=== PATIENT | male | born 1935 | race Caucasian/White ===

== ENCOUNTER 2017-07-27 05:23 | Day surgery (SDC) | payer MEDICARE ==
[2017-07-27] VITALS (8 sets, daily range): BP systolic 116–126; BP diastolic 51–61; PULSE 63–80; TEMP 98–98.4
[~2017-07-27] VITALS: Ht 180.3 cm; Wt 112.8 kg
[~2017-07-27 05:23] MED LIST: ATIVAN 0.50.5 MG/TAB PO; CARDURA 8MG TAB8 MG PO; CARDURA4 MG PO; DOXAZOCIN PO; LOW DOSE ASPIRI81 MG PO; MULTIPLE VITAMI1 CAP PO; UNABLE
[2017-07-27] MEDS ORDERED: REVIA 50MG TABL50 MG PO (05:53)
[2017-07-27] MEDS ORDERED: FLOMAX 0.40.4 MG/CAP PO (05:53)
[2017-07-27] MEDS ORDERED: GLUCOPHAGE500 MG/TAB PO (05:54)
[2017-07-27] MEDS ORDERED: CENTRUM SILVER1 TAB PO (05:55)
[2017-07-27] MEDS ORDERED: ASPIRIN 81M81 MG/TA2 PO (05:56)
[2017-07-27] MEDS ORDERED: MELATONIN5 M1 SL (05:56)
[2017-07-27] MEDS ORDERED: ATIVAN 0.50.5 MG/TAB PO (05:57)
[2017-07-27] MEDS ORDERED: PYRIDIUM 100MG100 MG PO (09:14)
== END 2017-07-27 11:50 | disposition home or self-care (01) ==
LOC: SDCO 05:23
DX: N32.9 Bladder disorder, unspecified (principal); N30.20 Other chronic cystitis without hematuria; Z85.46 Personal history of malignant neoplasm of prostate; E11.9 Type 2 diabetes mellitus without complications; I10 Essential (primary) hypertension; N40.1 Benign prostatic hyperplasia with lower urinary tract symptoms; R35.1 Nocturia; Z79.84 Long term (current) use of oral hypoglycemic drugs; Z79.82 Long term (current) use of aspirin; Z87.891 Personal history of nicotine dependence; Z80.1 Family history of malignant neoplasm of trachea, bronchus and lung; Z82.3 Family history of stroke; F10.21 Alcohol dependence, in remission; L71.9 Rosacea, unspecified
CPT/HCPCS: C1769; J0690; J1100; J2405; J2704; J3010; J7030; Q9967

== ENCOUNTER 2017-08-08 08:53 | Inpatient (IN) | payer MEDICARE ==
[~2017-08-08] VITALS: Ht 177.8 cm; Wt 112.9 kg
[~2017-08-08 08:53] MED LIST changes: +ASPIRIN 81M81 MG/TA2 PO; +CENTRUM SILVER1 TAB PO; +FLOMAX 0.40.4 MG/CAP PO; +GLUCOPHAGE500 MG/TAB PO; +MELATONIN5 M1 SL; +PYRIDIUM 100MG100 MG PO; +REVIA 50MG TABL50 MG PO
[2017-08-08 09:27] LABS: RED BLOOD COUNT 4.57 M/mm3 (4.20-5.60)
[2017-08-08 09:28] LABS: BASO # 0.1 (0.0-0.2); BASO % 0.5 % (0.0-2.0); EOS # 0.1 (0.0-0.7); EOS % 0.5 % (0-4.0); GRAN % 82.3 % (42.2-75.2); HEMATOCRIT 42.5 % (42.0-52.0); HEMOGLOBIN 14.2 g/dl (13.5-18.0); LYMPH % 9.2 % (20.0-51.0); MEAN CELL VOLUME 93 fl (80.0-100.0); MEAN CORPUSCULAR HEMOGLOBIN 31 pg (27.0-31.0); MEAN CORPUSCULAR HGB CONC 33 g/dl (33.0-37.0); MEAN PLATELET VOLUME 11.3 fl (7.4-10.4); MONO # 0.8 (0.1-0.6); MONO % 7.2 % (1.7-9.3); PLATELET COUNT 210 K/mm3 (130-400)
[2017-08-08 09:38] LABS: ALANINE AMINOTRANSFERASE 91 U/L (21-72); ALBUMIN 4.5 gm/dL (3.5-5.0); ALKALINE PHOSPHATASE 55 U/L (50-136); ANION GAP 13 mmol/L (7-16); AST,SGOT 145 U/L (15-37); BILIRUBIN,TOTAL 2.5 mg/dL (0.0-1.0); BLOOD UREA NITROGEN 9 mg/dL (9-20); CARBON DIOXIDE 26 mmol/L (22-30); CHLORIDE 98 mmol/L (98-107); CREATININE, serum 0.84 mg/dL (0.66-1.25); GLUCOSE 210 mg/dL (74-106); POTASSIUM 4.2 mmol/L (3.4-5.0); SODIUM 138 mmol/L (137-145); TOTAL PROTEIN 7.6 gm/dL (6.4-8.2)
[2017-08-08 09:38] LABS: COLLECTION METHOD CLEAN CATCH
[2017-08-08 09:44] LABS: MUCOUS Present /lpf; PH 6 (5-8); SQUAMOUS EPITHELIAL None Seen /hpf; URINE APPEARANCE Clear; URINE BACTERIA None Seen /hpf; URINE BILIRUBIN Negative (NEGATIVE); URINE BLOOD 1+ (NEGATIVE); URINE COLOR Yellow; URINE GLUCOSE Negative (NEGATIVE); URINE KETONE Trace (NEGATIVE); URINE LEUKOCYTE ESTERASE 1+ (NEGATIVE); URINE NITRATE Negative (NEGATIVE); URINE PROTEIN(semi-quant) Negative (NEGATIVE); URINE UROBILINOGEN Negative (NEGATIVE)
[2017-08-08 09:45] LABS: C-REACTIVE PROTEIN < 0.5 mg/dL (0.0-0.9)
[2017-08-08 09:47] LABS: TROPONIN-I < 0.012 ng/mL (0.000-0.034)
[2017-08-08 10:15] LABS: LIPASE 19021 U/L (23-300)
[2017-08-08 12:28] VITALS: BP 150/59; PULSE 88; TEMP 98.1
[2017-08-08 17:34] VITALS: BP 123/56; PULSE 66; TEMP 98.5
[2017-08-08 22:14] VITALS: BP 103/72; PULSE 77; TEMP 98.7
[2017-08-09 04:57] VITALS: BP 114/50; PULSE 67; TEMP 99.3
[2017-08-09 06:43] LABS: HEMATOCRIT 38.3 % (42.0-52.0); HEMOGLOBIN 12.5 g/dl (13.5-18.0); MEAN CELL VOLUME 95 fl (80.0-100.0); MEAN CORPUSCULAR HEMOGLOBIN 31 pg (27.0-31.0); MEAN CORPUSCULAR HGB CONC 33 g/dl (33.0-37.0); PLATELET COUNT 178 K/mm3 (130-400); RED BLOOD COUNT 4.03 M/mm3 (4.20-5.60); REDCELL DISTRIBUTION WIDTH-CV 13.3 % (11.5-14.5)
[2017-08-09 07:07] LABS: ALBUMIN 3.3 gm/dL (3.5-5.0); BILIRUBIN,TOTAL 2.1 mg/dL (0.0-1.0); CALCIUM 8.7 mg/dL (8.4-10.2); CREATININE, serum 0.89 mg/dL (0.66-1.25); POTASSIUM 3.9 mmol/L (3.4-5.0); TOTAL PROTEIN 6.1 gm/dL (6.4-8.2)
[2017-08-09 09:37] VITALS: BP 132/47; PULSE 66; TEMP 98.8
[2017-08-09 13:19] VITALS: BP 131/53; PULSE 71; TEMP 99.1
[2017-08-09 16:57] VITALS: BP 133/52; PULSE 73; TEMP 99.5
[2017-08-09 22:25] VITALS: BP 139/57; PULSE 75; TEMP 98.7
[2017-08-10] VITALS (15 sets, daily range): BP systolic 132–168; BP diastolic 44–87; PULSE 71–99; TEMP 97.4–99.2
[2017-08-11 03:19] VITALS: BP 137/51; PULSE 82; TEMP 98.3
[2017-08-11 07:18] VITALS: BP 136/63; PULSE 66; TEMP 100
[2017-08-11 11:05] VITALS: BP 144/60; PULSE 74; TEMP 98.2
== END 2017-08-11 14:54 | disposition home or self-care (01) | DRG 419 ==
LOC: COL.ER 08:53 → SURG 11:54 → PEDS 11:54
PROVIDERS: Emergency Medicine; Surgery
PROC: BF131ZZ Fluoroscopy of Gallbladder and Bile Ducts using Low Osmolar Contrast (ICD-10-PCS; 2017-08-10)
PROC: 0FT44ZZ Resection of Gallbladder, Percutaneous Endoscopic Approach (ICD-10-PCS; principal; 2017-08-10 14:00)
DX: K85.10 Biliary acute pancreatitis without necrosis or infection (principal); E11.9 Type 2 diabetes mellitus without complications; C61 Malignant neoplasm of prostate; F10.21 Alcohol dependence, in remission; Z87.891 Personal history of nicotine dependence
CPT/HCPCS: J0696; J1650; J2270; J2405; J2550; J2704; J3010; J7030; J7120; Q9967

== ENCOUNTER → 2018-09-20 | Outpatient (CLI) | payer MEDICARE | LOC: COL.RAD 15:32 | DX: N28.1 Cyst of kidney, acquired (principal) ==

== ENCOUNTER 2019-04-18 20:44 | Emergency (ER) | payer MEDICARE ==
[~2019-04-18] VITALS: Ht 177.8 cm; Wt 122.7 kg
[2019-04-18 20:45] VITALS: TEMP 98.5
[2019-04-18 21:09] LABS: ALBUMIN 3.9 gm/dL (3.5-5.0); BILIRUBIN,TOTAL 0.4 mg/dL (0.0-1.0); CALCIUM 8.5 mg/dL (8.4-10.2); CREATININE, serum 0.83 (0.66-1.25); TOTAL PROTEIN 6.8 gm/dL (6.4-8.2)
[2019-04-18 21:13] LABS: BASO # 0.1 (0.0-0.2); BASO % 1.1 % (0.0-2.0); EOS # 0.2 (0.0-0.7); EOS % 2.4 % (0-4.0); GRAN # 3.6 (1.4-6.5); GRAN % 57.5 % (42.2-75.2); HEMATOCRIT 42.5 % (42.0-52.0); LYMPH % 32.2 % (20.0-51.0); MEAN CELL VOLUME 94 fl (80.0-100.0); MEAN CORPUSCULAR HEMOGLOBIN 31 pg (27.0-31.0); MEAN CORPUSCULAR HGB CONC 33 g/dl (33.0-37.0); MEAN PLATELET VOLUME 10.7 fl (7.4-10.4); MONO # 0.4 (0.1-0.6); MONO % 6.6 % (1.7-9.3); PLATELET COUNT 202 K/mm3 (130-400); RED BLOOD COUNT 4.54 M/mm3 (4.20-5.60); REDCELL DISTRIBUTION WIDTH-CV 12.2 % (11.5-14.5)
[2019-04-18 23:34] VITALS: BP 135/71; PULSE 80
== END 2019-04-18 23:24 | disposition home or self-care (01) ==
LOC: COL.ER 20:44
PROVIDERS: Family Medicine
DX: S01.81XA Laceration without foreign body of other part of head, initial encounter (principal); S06.339A Contusion and laceration of cerebrum, unspecified, with loss of consciousness of unspecified duration, initial encounter; E11.9 Type 2 diabetes mellitus without complications; F10.129 Alcohol abuse with intoxication, unspecified; Z87.430 Personal history of prostatic dysplasia; Z79.82 Long term (current) use of aspirin; Z79.84 Long term (current) use of oral hypoglycemic drugs; W00.0XXA Fall on same level due to ice and snow, initial encounter; Y90.6 Blood alcohol level of 120-199 mg/100 ml

== ENCOUNTER 2019-06-17 11:19 | Emergency (ER) | payer MEDICARE ==
[~2019-06-17] VITALS: Ht 177.8 cm; Wt 102.3 kg
[2019-06-17 11:52] LABS: BASO # 0.1 (0.0-0.2); BASO % 0.7 % (0.0-2.0); EOS % 0.4 % (0-4.0); GRAN # 5.5 (1.4-6.5); GRAN % 75.2 % (42.2-75.2); HEMATOCRIT 44.8 % (42.0-52.0); LYMPH # 1.2 (1.2-3.4); LYMPH % 16.8 % (20.0-51.0); MEAN CELL VOLUME 93 fl (80.0-100.0); MEAN CORPUSCULAR HEMOGLOBIN 31 pg (27.0-31.0); MEAN CORPUSCULAR HGB CONC 34 g/dl (33.0-37.0); MEAN PLATELET VOLUME 10.4 fl (7.4-10.4); MONO # 0.5 (0.1-0.6); MONO % 6.6 % (1.7-9.3); PLATELET COUNT 241 K/mm3 (130-400); RED BLOOD COUNT 4.84 M/mm3 (4.20-5.60); REDCELL DISTRIBUTION WIDTH-CV 12.7 % (11.5-14.5)
[2019-06-17 12:03] LABS: ALANINE AMINOTRANSFERASE 23 U/L (21-72); ALBUMIN 4.4 gm/dL (3.5-5.0); ALKALINE PHOSPHATASE 61 U/L (50-136); ANION GAP 11 mmol/L (7-16); AST,SGOT 19 U/L (15-37); BILIRUBIN,TOTAL 0.9 mg/dL (0.0-1.0); BLOOD UREA NITROGEN 9 mg/dL (9-20); CALCIUM 9.3 mg/dL (8.4-10.2); CARBON DIOXIDE 25 mmol/L (22-30); CHLORIDE 98 mmol/L (98-107); CREATININE, serum 0.87 (0.66-1.25); GLUCOSE 197 mg/dL (74-106); POTASSIUM 3.9 mmol/L (3.4-5.0); SODIUM 134 mmol/L (137-145); TOTAL PROTEIN 7.4 gm/dL (6.4-8.2)
[2019-06-17 12:06] LABS: ALCOHOL(ethanol),MEDICAL < 10 mg/dL
[2019-06-17] MEDS ORDERED: FOLIC ACID0.4 MG PO (14:39)
[2019-06-17] MEDS ORDERED: NATURE'S BLEND100 M2 PO (14:39)
[2019-06-17 15:08] VITALS: BP 147/67; PULSE 77; TEMP 98.3
== END 2019-06-17 15:08 | disposition home or self-care (01) ==
LOC: COL.ER 11:19
PROVIDERS: Emergency Medicine
DX: R20.2 Paresthesia of skin (principal); E11.9 Type 2 diabetes mellitus without complications; I10 Essential (primary) hypertension; F41.9 Anxiety disorder, unspecified; Z90.89 Acquired absence of other organs; Z79.84 Long term (current) use of oral hypoglycemic drugs; Z79.82 Long term (current) use of aspirin

== ENCOUNTER 2019-06-24 19:13 | Emergency (ER) | payer MEDICARE ==
[~2019-06-24] VITALS: Ht 177.8 cm; Wt 102.3 kg
[~2019-06-24 19:13] MED LIST changes: +FOLIC ACID0.4 MG PO; +NATURE'S BLEND100 M2 PO
[2019-06-24 20:00] LABS: BASO % 0.6 % (0.0-2.0); GRAN % 75.7 % (42.2-75.2); HEMATOCRIT 44.2 % (42.0-52.0); HEMOGLOBIN 15.1 g/dl (13.5-18.0); LYMPH # 0.8 (1.2-3.4); LYMPH % 15.4 % (20.0-51.0); MEAN CELL VOLUME 90 fl (80.0-100.0); MEAN CORPUSCULAR HEMOGLOBIN 31 pg (27.0-31.0); MEAN CORPUSCULAR HGB CONC 34 g/dl (33.0-37.0); MEAN PLATELET VOLUME 10.7 fl (7.4-10.4); MONO # 0.4 (0.1-0.6); MONO % 8.1 % (1.7-9.3); PLATELET COUNT 200 K/mm3 (130-400); RED BLOOD COUNT 4.89 M/mm3 (4.20-5.60); REDCELL DISTRIBUTION WIDTH-CV 12.5 % (11.5-14.5)
[2019-06-24 20:15] LABS: ALANINE AMINOTRANSFERASE 32 U/L (21-72); ALBUMIN 4.1 gm/dL (3.5-5.0); ALKALINE PHOSPHATASE 55 U/L (50-136); ANION GAP 12 mmol/L (7-16); AST,SGOT 36 U/L (15-37); BILIRUBIN,TOTAL 0.7 mg/dL (0.0-1.0); BLOOD UREA NITROGEN 9 mg/dL (9-20); C-REACTIVE PROTEIN 0.9 mg/dL (0.0-0.9); CALCIUM 8.6 mg/dL (8.4-10.2); CARBON DIOXIDE 26 mmol/L (22-30); CHLORIDE 94 mmol/L (98-107); CREATININE, serum 0.79 (0.66-1.25); GLUCOSE 178 mg/dL (74-106); MAGNESIUM 1.8 mg/dL (1.6-2.3); PHOSPHOROUS 3.2 mg/dL (2.5-4.5); POTASSIUM 3.4 mmol/L (3.4-5.0); SODIUM 131 mmol/L (137-145)
[2019-06-24 20:16] LABS: ALCOHOL(ethanol),MEDICAL < 10 mg/dL
[2019-06-24 20:41] LABS: COLLECTION METHOD CLEAN CATCH
[2019-06-24 20:49] LABS: PH 7 (5-8); SQUAMOUS EPITHELIAL None Seen /hpf; URINE APPEARANCE Clear; URINE BACTERIA None Seen /hpf; URINE BILIRUBIN Negative (NEGATIVE); URINE BLOOD 2+ (NEGATIVE); URINE COLOR Yellow; URINE GLUCOSE Negative (NEGATIVE); URINE KETONE 1+ (NEGATIVE); URINE LEUKOCYTE ESTERASE Negative (NEGATIVE); URINE NITRATE Negative (NEGATIVE); URINE PROTEIN(semi-quant) Negative (NEGATIVE); URINE RBC >50 /hpf; URINE UROBILINOGEN Negative (NEGATIVE)
[2019-06-24 22:00] VITALS: BP 147/67; PULSE 70; TEMP 98.8
[2019-06-24] MEDS ORDERED: TAMIFLU 75MG75 MG PO (22:04)
== END 2019-06-24 22:15 | disposition home or self-care (01) ==
LOC: COL.ER 19:13
PROVIDERS: Emergency Medicine
DX: J09.X1 Influenza due to identified novel influenza A virus with pneumonia (principal); F03.90 Unspecified dementia, unspecified severity, without behavioral disturbance, psychotic disturbance, mood disturbance, and anxiety; E11.9 Type 2 diabetes mellitus without complications; Z90.89 Acquired absence of other organs; Z79.84 Long term (current) use of oral hypoglycemic drugs; Z79.82 Long term (current) use of aspirin
CPT/HCPCS: J7030

== ENCOUNTER 2019-06-26 12:28 | Inpatient (IN) | payer MEDICARE ==
[~2019-06-26] VITALS: Ht 172.7 cm; Wt 105.9 kg
[~2019-06-26 12:28] MED LIST changes: +TAMIFLU 75MG75 MG PO
[2019-06-26 13:27] LABS: COLLECTION METHOD CLEAN CATCH
[2019-06-26] MEDS ORDERED: CELEXA 20MG20 MG/TAB PO (13:54)
[2019-06-26 13:55] LABS: MUCOUS Present /lpf; PH 6 (5-8); SQUAMOUS EPITHELIAL None Seen /hpf; URINE APPEARANCE Cloudy; URINE BACTERIA None Seen /hpf; URINE BILIRUBIN Negative (NEGATIVE); URINE BLOOD 3+ (NEGATIVE); URINE COLOR Amber; URINE GLUCOSE Negative (NEGATIVE); URINE KETONE 1+ (NEGATIVE); URINE LEUKOCYTE ESTERASE 2+ (NEGATIVE); URINE NITRATE Negative (NEGATIVE); URINE PROTEIN(semi-quant) 2+ (NEGATIVE); URINE RBC >50 /hpf; URINE UROBILINOGEN Negative (NEGATIVE)
[2019-06-26] MEDS ORDERED: NAMENDA 10MG TA10 MG PO (13:55)
[2019-06-26] MEDS ORDERED: ARICEPT 5MG PO (13:57)
[2019-06-26 14:56] LABS: BASO % 0.2 % (0.0-2.0); GRAN # 12.7 (1.4-6.5); GRAN % 86.3 % (42.2-75.2); HEMATOCRIT 43.2 % (42.0-52.0); HEMOGLOBIN 14.7 g/dl (13.5-18.0); LYMPH # 0.7 (1.2-3.4); LYMPH % 4.6 % (20.0-51.0); MEAN CELL VOLUME 91 fl (80.0-100.0); MEAN CORPUSCULAR HEMOGLOBIN 31 pg (27.0-31.0); MEAN CORPUSCULAR HGB CONC 34 g/dl (33.0-37.0); MEAN PLATELET VOLUME 10.6 fl (7.4-10.4); MONO # 1.3 (0.1-0.6); MONO % 8.6 % (1.7-9.3); PLATELET COUNT 170 K/mm3 (130-400); RED BLOOD COUNT 4.75 M/mm3 (4.20-5.60); REDCELL DISTRIBUTION WIDTH-CV 12.7 % (11.5-14.5)
[2019-06-26 15:25] LABS: ALBUMIN 3.8 gm/dL (3.5-5.0); BILIRUBIN,TOTAL 0.9 mg/dL (0.0-1.0); CALCIUM 8.4 mg/dL (8.4-10.2); CREATININE, serum 0.89 (0.66-1.25); POTASSIUM 3.8 mmol/L (3.4-5.0); TOTAL PROTEIN 6.7 gm/dL (6.4-8.2)
[2019-06-26 18:38] VITALS: BP 130/54; PULSE 75; TEMP 100.5
[2019-06-26 20:51] VITALS: BP 141/58; PULSE 77; TEMP 99.6
[2019-06-27] VITALS: TEMP 99.8
[2019-06-27 04:32] VITALS: BP 125/31; PULSE 75; TEMP 102
[2019-06-27 09:24] VITALS: BP 119/38; PULSE 58; TEMP 98.6
[2019-06-27 10:14] LABS: HEMATOCRIT 40.6 % (42.0-52.0); HEMOGLOBIN 13.4 g/dl (13.5-18.0); MEAN CELL VOLUME 94 fl (80.0-100.0); MEAN CORPUSCULAR HEMOGLOBIN 31 pg (27.0-31.0); MEAN CORPUSCULAR HGB CONC 33 g/dl (33.0-37.0); PLATELET COUNT 164 K/mm3 (130-400); RED BLOOD COUNT 4.34 M/mm3 (4.20-5.60); REDCELL DISTRIBUTION WIDTH-CV 13.1 % (11.5-14.5)
[2019-06-27 10:35] LABS: BAND 14 % (0-10); LYMPHOCYTE 2 % (20.0-51.0); NEUTROPHILS 75 % (42.0-75.2); PLATELET ESTIMATE NORMAL (NORMAL)
[2019-06-27 10:37] LABS: CREATININE, serum 0.78 (0.66-1.25); POTASSIUM 3.5 mmol/L (3.4-5.0)
[2019-06-27 13:28] VITALS: BP 116/38; PULSE 63; TEMP 98.4
[2019-06-27 17:47] VITALS: BP 107/46; PULSE 84; TEMP 98.4
[2019-06-27 21:04] VITALS: BP 151/63; PULSE 75; TEMP 97.8
[2019-06-28 04:07] VITALS: BP 140/51; PULSE 76; TEMP 101
[2019-06-28 07:40] LABS: BASO % 0.2 % (0.0-2.0); GRAN # 12.2 (1.4-6.5); GRAN % 82.1 % (42.2-75.2); HEMATOCRIT 38.5 % (42.0-52.0); HEMOGLOBIN 12.7 g/dl (13.5-18.0); LYMPH # 1.5 (1.2-3.4); MEAN CELL VOLUME 93 fl (80.0-100.0); MEAN CORPUSCULAR HEMOGLOBIN 31 pg (27.0-31.0); MEAN CORPUSCULAR HGB CONC 33 g/dl (33.0-37.0); MEAN PLATELET VOLUME 11.5 fl (7.4-10.4); MONO # 1.1 (0.1-0.6); MONO % 7.3 % (1.7-9.3); PLATELET COUNT 153 K/mm3 (130-400); RED BLOOD COUNT 4.12 M/mm3 (4.20-5.60)
[2019-06-28 07:47] LABS: CALCIUM 7.8 mg/dL (8.4-10.2); CREATININE, serum 0.71 (0.66-1.25); POTASSIUM 3.3 mmol/L (3.4-5.0)
[2019-06-28 08:24] VITALS: BP 144/59; PULSE 70; TEMP 98.9
[2019-06-28 12:51] VITALS: BP 153/67; PULSE 65; TEMP 99
[2019-06-28 16:26] VITALS: BP 144/61; PULSE 69; TEMP 98.8
[2019-06-28 21:33] VITALS: BP 142/56; PULSE 68; TEMP 97.6
[2019-06-29 00:17] VITALS: BP 166/66; PULSE 68; TEMP 99
[2019-06-29 04:23] VITALS: BP 148/62; PULSE 82; TEMP 98.5
[2019-06-29 07:56] VITALS: BP 131/51; PULSE 72; TEMP 99.1
[2019-06-29 08:04] LABS: BASO % 0.1 % (0.0-2.0); EOS % 0.2 % (0-4.0); GRAN # 7.6 (1.4-6.5); GRAN % 78.4 % (42.2-75.2); HEMATOCRIT 39.4 % (42.0-52.0); HEMOGLOBIN 13.2 g/dl (13.5-18.0); LYMPH # 1.3 (1.2-3.4); LYMPH % 13.4 % (20.0-51.0); MEAN CELL VOLUME 93 fl (80.0-100.0); MEAN CORPUSCULAR HEMOGLOBIN 31 pg (27.0-31.0); MEAN CORPUSCULAR HGB CONC 34 g/dl (33.0-37.0); MEAN PLATELET VOLUME 11.2 fl (7.4-10.4); MONO # 0.7 (0.1-0.6); MONO % 7.5 % (1.7-9.3); PLATELET COUNT 196 K/mm3 (130-400); RED BLOOD COUNT 4.25 M/mm3 (4.20-5.60); REDCELL DISTRIBUTION WIDTH-CV 12.9 % (11.5-14.5)
[2019-06-29 08:12] LABS: CALCIUM 8.1 mg/dL (8.4-10.2); CREATININE, serum 0.66 (0.66-1.25); MAGNESIUM 1.9 mg/dL (1.6-2.3); POTASSIUM 3.6 mmol/L (3.4-5.0)
[2019-06-29] MEDS ORDERED: CIPRO 500MG TA500 MG PO (10:12)
== END 2019-06-29 13:17 | disposition home or self-care (01) | DRG 872 ==
LOC: COL.ER 12:28 → MEDICAL 17:02
PROVIDERS: Emergency Medicine; Physician Assistant; ADMIT Student in an Organized Health Care Education/Training Program
DX: A41.9 Sepsis, unspecified organism (principal); N39.0 Urinary tract infection, site not specified; F41.9 Anxiety disorder, unspecified; F10.10 Alcohol abuse, uncomplicated; I10 Essential (primary) hypertension; E11.9 Type 2 diabetes mellitus without complications; F03.90 Unspecified dementia, unspecified severity, without behavioral disturbance, psychotic disturbance, mood disturbance, and anxiety; F32.9 Major depressive disorder, single episode, unspecified; J10.1 Influenza due to other identified influenza virus with other respiratory manifestations; B96.5 Pseudomonas (aeruginosa) (mallei) (pseudomallei) as the cause of diseases classified elsewhere; N32.0 Bladder-neck obstruction; Z85.46 Personal history of malignant neoplasm of prostate; Z90.49 Acquired absence of other specified parts of digestive tract; Z79.82 Long term (current) use of aspirin; Z79.84 Long term (current) use of oral hypoglycemic drugs; Z87.891 Personal history of nicotine dependence
CPT/HCPCS: 99222-AI; 99232-AI; 99233-AI; A4216; J0692; J0696; J7030; Q9967

== ENCOUNTER 2019-10-07 08:37 | Emergency (ER) | payer MEDICARE ==
[~2019-10-07] VITALS: Ht 177.8 cm; Wt 110.0 kg
[~2019-10-07 08:37] MED LIST changes: +ARICEPT 5MG PO; +CELEXA 20MG20 MG/TAB PO; +CIPRO 500MG TA500 MG PO; +NAMENDA 10MG TA10 MG PO
[2019-10-07 08:50] VITALS: TEMP 99.9
[2019-10-07] MEDS ORDERED: KLONOPIN 1MG1 MG PO (09:06)
[2019-10-07] MEDS ORDERED: SEROQUEL 2525 MG/TAB PO (09:06)
[2019-10-07] MEDS ORDERED: GLUCOPHAGE XR500 M1 PO (09:07)
[2019-10-07 09:30] LABS: COLLECTION METHOD CLEAN CATCH
[2019-10-07 09:45] LABS: PH 7 (5-8); SQUAMOUS EPITHELIAL None Seen /hpf; URINE APPEARANCE Turbid; URINE BACTERIA None Seen /hpf; URINE BILIRUBIN Negative (NEGATIVE); URINE BLOOD 1+ (NEGATIVE); URINE COLOR Yellow; URINE GLUCOSE Negative (NEGATIVE); URINE KETONE Negative (NEGATIVE); URINE LEUKOCYTE ESTERASE 2+ (NEGATIVE); URINE NITRATE Positive (NEGATIVE); URINE PROTEIN(semi-quant) 2+ (NEGATIVE); URINE UROBILINOGEN Negative (NEGATIVE)
[2019-10-07] MEDS ORDERED: AMOXICILLIN 8751 TAB PO (09:56)
[2019-10-07 10:28] VITALS: BP 153/76; PULSE 98
[2019-10-08] MEDS ORDERED: CIPRO 500MG TA500 MG PO ×3 (12:52→13:46)
== END 2019-10-07 10:28 | disposition home or self-care (01) ==
LOC: COL.ER 08:37
PROVIDERS: Family Medicine
DX: N30.00 Acute cystitis without hematuria (principal)

== ENCOUNTER → 2020-11-14 | Outpatient (CLI) | payer MEDICARE ==
[~2020-11-14] MED LIST changes: +AMOXICILLIN 8751 TAB PO; +GLUCOPHAGE XR500 M1 PO; +KLONOPIN 1MG1 MG PO; +ONE-A-DAY ESSE1 EACH PO; +SEROQUEL 2525 MG/TAB PO
== END ==
LOC: COL.RAD 08:29
DX: N39.0 Urinary tract infection, site not specified (principal)

== ENCOUNTER 2021-06-10 08:40 | Inpatient (IN) | payer MEDICARE ==
[~2021-06-10] VITALS: Ht 182.9 cm; Wt 137.0 kg
[2021-06-10 09:04] LABS: BASO # 0.1 K/mm3 (0.0-0.2); BASO % 0.5 % (0.0-2.0); EOS % 0.1 % (0.0-4.0); GRAN # 9.9 K/mm3 (1.4-6.5); GRAN % 85.3 % (42.2-75.2); HEMOGLOBIN 14.1 g/dl (13.5-18.0); LYMPH # 0.8 K/mm3 (1.2-3.4); MEAN CELL VOLUME 93 fl (80.0-100.0); MEAN CORPUSCULAR HEMOGLOBIN 31 pg (27-31); MEAN CORPUSCULAR HGB CONC 33 g/dl (33.0-37.0); MEAN PLATELET VOLUME 10.7 fl (7.4-10.4); MONO # 0.8 K/mm3 (0.1-0.6); MONO % 6.8 % (1.7-9.3); PLATELET COUNT 234 K/mm3 (130-400); RED BLOOD COUNT 4.63 M/mm3 (4.20-5.60); REDCELL DISTRIBUTION WIDTH-CV 12.6 % (11.5-14.5)
[2021-06-10 09:12] LABS: COLLECTION METHOD IN
[2021-06-10 09:13] LABS: INR 1.1 (0.8-3.0); PROTHROMBIN TIME 11.9 SECONDS (9.7-12.8)
[2021-06-10 09:17] LABS: ARTERIAL BLD GAS O2 SATURATION 94.8 % (92-100); ARTERIAL BLD GAS TCO2 CT 27.6; ARTERIAL BLOOD GAS BASE EXCESS 0.7 (-2-2); ARTERIAL BLOOD GAS HCO3 26.2 meq/L (22-26); ARTERIAL BLOOD GAS PCO2 45.3 mmHg (35-45); ARTERIAL BLOOD GAS PO2 68.1 mmHg (80-100); ARTERIAL BLOOD GAS pH 7.38 (7.35-7.45)
[2021-06-10 09:19] LABS: PH 6 (5-8); SQUAMOUS EPITHELIAL None Seen /hpf (0-10); URINE APPEARANCE Clear (CLEAR/HAZY); URINE BACTERIA None Seen /hpf (NONE SEEN); URINE BILIRUBIN Negative (NEGATIVE); URINE BLOOD Negative (NEGATIVE); URINE COLOR Yellow (YELLOW); URINE GLUCOSE 2+ (NEGATIVE); URINE KETONE 1+ (NEGATIVE); URINE LEUKOCYTE ESTERASE Negative (NEGATIVE); URINE NITRATE Negative (NEGATIVE); URINE PROTEIN(semi-quant) Negative (NEGATIVE); URINE UROBILINOGEN Negative (NEGATIVE)
[2021-06-10 09:24] LABS: ALBUMIN 3.9 gm/dL (3.4-4.8); BILIRUBIN,TOTAL 0.7 mg/dL (0.2-1.2); C-REACTIVE PROTEIN 0.29 mg/dL (0.00-0.50); CREATININE, serum 1.05 mg/dL (0.72-1.25); POTASSIUM 4.5 mmol/L (3.5-4.5); TOTAL PROTEIN 7.1 gm/dL (6.2-8.1)
--- NOTE | 2021-06-10 10:41 | NUR ---
Initial visit; Roller Varnisher answered call from nurse for family of Omar. Per request Roller Varnisher called a Tariff Expert of their choice. Tariff Expert will receive the message and come directly to [place] immediately.
--- NOTE | 2021-06-10 16:32 | NUR ---
PT ADMITTED TO ROOM [address] DAVIS. PT HAS HAD A HEMORRAGIC STROKE. LEFT SIDE IS AFFECTED. CURRENT BP 159/69. CARDIZEM DRIP RUNNING @5 MLS/HR. PT HAD EMESIS X1 GREEN MUCOUS. BED BATH PROVIDED AND COMPLETE BED CHANGE.
[2021-06-10 16:51] VITALS: BP 151/67; PULSE 82; TEMP 98.1
--- NOTE | 2021-06-10 17:58 | NUR ---
INCREASED CARDIZEM RATE TO 7.5 MLS/HR TASHI DAVIS.
--- NOTE | 2021-06-10 18:14 | NUR ---
PT'S AT BEDSIDE.
--- NOTE | 2021-06-10 20:00 | NUR ---
Pt. laying in bed. Pt. is alert and oriented but forgettful. Bilateral AC IV's. IV fluids infusing per orders. Cardizem GTT infusing to orders. Pt. does not appear to be in pain per FLACC scale. Call light within reach.
[2021-06-10 22:00] VITALS: BP 185/92; PULSE 97
--- NOTE | 2021-06-10 22:00 | NUR ---
BP's remaining high, 185/92. TAB Abraham changed cardizem GTT, see mar. Will monitor.
[2021-06-10 22:15] VITALS: BP 140/40; PULSE 100
[2021-06-11] VITALS (8 sets, daily range): BP systolic 110–139; BP diastolic 43–57; PULSE 77–93; TEMP 97.8–98.7
[2021-06-11 06:50] LABS: BASO % 0.1 % (0.0-2.0); GRAN # 9.3 K/mm3 (1.4-6.5); GRAN % 83.9 % (42.2-75.2); HEMATOCRIT 40.6 % (42.0-52.0); HEMOGLOBIN 13.1 g/dl (13.5-18.0); LYMPH # 1.1 K/mm3 (1.2-3.4); LYMPH % 9.5 % (20.0-51.0); MEAN CELL VOLUME 94 fl (80.0-100.0); MEAN CORPUSCULAR HEMOGLOBIN 31 pg (27-31); MEAN CORPUSCULAR HGB CONC 32 g/dl (33.0-37.0); MEAN PLATELET VOLUME 11.3 fl (7.4-10.4); MONO # 0.7 K/mm3 (0.1-0.6); PLATELET COUNT 231 K/mm3 (130-400)
[2021-06-11 07:16] LABS: CALCIUM 8.8 mg/dL (8.4-10.2); CREATININE, serum 0.87 mg/dL (0.72-1.25); POTASSIUM 4.2 mmol/L (3.5-4.5)
--- NOTE | 2021-06-11 07:24 | NUR ---
TELE DISCONTINUED PER ORDERS.
--- NOTE | 2021-06-11 09:31 | NUR ---
PT RESTING IN BED. AM MEDS GIVEN ORDERED. OT IN TO SEE PT THIS AM.
--- NOTE | 2021-06-11 15:34 | NUR ---
Neurodiagnostic Tech collaborated with Hospitalist and palliative consult ordered. OMERO met with Alma, Palliative Care RN who advised she met with patient and his , Kristina this afternoon and they wanted to discuss goals of care with their son, David. SW contacted patient's son, David who advised patient and Kristina live in [place]. Patient's primary care physician is Dr. Franco and prior to hospitalization, patient was independent with ADLS and did not use any DME. Patient has DPOA-HC in EMR which designates Kristina and David. David stated he and Kristina are available for a phone call tomorrow morning to discuss goals of care. David states he would be ready for a call tomorrow at 0900. OMERO contacted CEE Marquez who advised she would call tomorrow at 0900. Discharge Plan: Unknown at this time, Palliative Care to have goals of care discussion with family tomorrow morning.
[2021-06-12] VITALS (12 sets, daily range): BP systolic 112–151; BP diastolic 51–69; PULSE 63–77; TEMP 97.6–98.2
--- NOTE | 2021-06-12 02:29 | NUR ---
PATIENT HAS BEEN TALKATIVE THIS EVENING, BUT SPEECH IS CONFUSED. SEE ASSESSMENT. COBURN TO DD WITH CLEAR YELLOW URINE. IV FLUIDS AND CARDIAZEM DRIP INFUSING WITHOUT ISSUE. PATIENT WAS GURGLING DURING SPEECH AND YANKUR SUCTION USED.
--- NOTE | 2021-06-12 09:22 | NUR ---
Call made to patient's son David #[phone]. Was on speaker phone with David, his , and patient's Kristina. Patient has been working with and plans to have barium swallow study or similar to evaluate further for altered diet recommendations. I relayed this to the family. They are accepting that the patient will most likely need LTC and would like to see if he tolerates rehab. They confirmed that the patient would not want a feeding tube and understood that his PO intake is still being evaluated and his overall prognosis will be based on how well he can protect his airway. Family is hopeful but realistic. Family prefers residential at [facility] if available, then [facility]. They asked if [facility] has any residential options but would also be open to [place], if no other options in [facility] are availble. I relayed this information to and provided my contact information to patient's family if more questions arise.
--- NOTE | 2021-06-12 16:46 | NUR ---
SW spoke with the patient's son David who states that knowing he passed his MBS, they would like to pursue SNF options. Their 1st choice would be [facility], [facility]nd [facility], [facility]. Referrals sent to all of the above facilities.
[2021-06-13] VITALS (11 sets, daily range): BP systolic 129–158; BP diastolic 52–74; PULSE 54–71; TEMP 97.9–98.6
--- NOTE | 2021-06-13 02:51 | NUR ---
Scheduled medications given. Shift assessment performed. Catheter in place, securment device in use, tez care performed. Patient is alert, but confused. Small skin tear located on patient's right upper arm. Appears to be caused by BP cuff. BP cuff taken off and placed on opposite arm. No s/s of pain, discomfort, or further needs at this time. VSS. Cardizem gtt and fluids running as ordered. Call light in reach. Fall percautions in place.
--- NOTE | 2021-06-13 07:00 | NUR ---
Report received from CEE Hernandez. PT in bed resting, denies needs, alarm on, will continue to monitor.
--- NOTE | 2021-06-13 09:56 | NUR ---
Assessment chrted. Per staff patient is more talkative today and able to respond to some questions. DId not accurately tell me or date but did respond adn attempt to naswer. Cardizem gtt now at 5ML/HR to RFA. IVF to LFA. Tolerating some pureed and nectar thick but tired from receiving bed bath and rolling. Deneis pain. Bed alarm on, will continue to monitor.
--- NOTE | 2021-06-13 12:44 | NUR ---
Amrit with [facility] states that they only way they would be able to accept this patient is if he was to come to them on hospice services due to the extent of the patient's condition.
--- NOTE | 2021-06-13 15:21 | NUR ---
Call made to son David about facility refusals per OMERO. We again discussed LTC versus hospice and David stated he would talk with his mom about everything.
--- NOTE | 2021-06-13 16:59 | NUR ---
Jazzy with [facility] states that she could possibly take the patient early next week pending if they decide on hospice or not. David is to speak with his mother about it tonight.
--- NOTE | 2021-06-13 17:41 | NUR ---
Pt continues to have remarkable improvements over shift. pt able to feed self supper, did require some cueing to swallow when food is in mouth. Able to answer correctly last two tries but continues to be incorrect on date, able to say he is in the hospital and refers to [facility] across the street often. Denies pain, turning q2 hours for comfort to offest backside. Green draining clear yellow urine to DD. Bed alarm on but pt not attempting to get up. L side remains flaccid and facial droop unchagned but cognitively improving. Will continue to monitor and give report to nightshift nurse who will resume care.
--- NOTE | 2021-06-14 01:59 | NUR ---
PATIENT RESTING IN BED. ALERT AND PARTIALLY ORIENTED. SPEECH HAS IMPROVED, HAS BEEN ASKING FOR SIPS OF WATER FREQUENTLY. NEEDS SWALLOW CUES. TOOK PILLS CRUSHED IN APPLESAUCE. COBURN TO DD WITH CLEAR YELLOW URINE OUTPUT. IV FLUIDS INFUSING.
[2021-06-14 04:07] VITALS: BP 139/56; PULSE 57; TEMP 98.5
--- NOTE | 2021-06-14 06:50 | NUR ---
Bedside report complete with CEE Moreno. Pt. progressing w/ plan of care. This RN introduced self to pt. and let him know this RN will be the nurse today. Bed alarm on, call light in reach.
[2021-06-14 07:47] LABS: CALCIUM 8.2 mg/dL (8.4-10.2); CREATININE, serum 0.81 mg/dL (0.72-1.25)
[2021-06-14 07:56] VITALS: BP 130/57; PULSE 65; TEMP 97.7
[2021-06-14 08:09] LABS: GRAN # 7.3 K/mm3 (1.4-6.5); GRAN % 86.1 % (42.2-75.2); HEMATOCRIT 39.6 % (42.0-52.0); HEMOGLOBIN 12.7 g/dl (13.5-18.0); LYMPH # 0.7 K/mm3 (1.2-3.4); LYMPH % 8.5 % (20.0-51.0); MEAN CELL VOLUME 94 fl (80.0-100.0); MEAN CORPUSCULAR HEMOGLOBIN 30 pg (27-31); MEAN CORPUSCULAR HGB CONC 32 g/dl (33.0-37.0); MEAN PLATELET VOLUME 12.3 fl (7.4-10.4); MONO # 0.4 K/mm3 (0.1-0.6); MONO % 4.9 % (1.7-9.3); PLATELET COUNT 206 K/mm3 (130-400); REDCELL DISTRIBUTION WIDTH-CV 13.1 % (11.5-14.5)
--- NOTE | 2021-06-14 08:13 | NUR ---
Pt. forgetful of where he is today but knows he is in [place]. Pt. knows it is 2021 but did not know the month. Pt. able to make conversation, follow commands, and answer questions appropriately. Pt. is drowsy at times and fell a sleep during head-to-toe assessment. Bed alarm on, call light and belongings in reach. Plan for Q2 turning and repositioning today. Heel protector boots on. SCDs on.
[2021-06-14 11:40] VITALS: BP 155/67; PULSE 63; TEMP 97.8
--- NOTE | 2021-06-14 12:33 | NUR ---
It was brought to this RN's attention by physical therapist pt. looked like he had seizure activity in his left arm. This RN noted the activity on a seperate occasion. This RN observed pt.'s eyes rolling back and going back and fourth. Dr. Valentine was on the unit at this time, Dr. Valentine observed the activity as well. New order obtained for IV Kebrianra.
[2021-06-14 15:53] VITALS: BP 166/85; PULSE 66; TEMP 98.7
[2021-06-14 19:27] VITALS: BP 154/60; PULSE 67; TEMP 98.4
--- NOTE | 2021-06-14 23:27 | NUR ---
PATIENT HAS BEEN ALERT AND PARTIALLY ORIENTED. NEEDS FREQUENT REMINDERS TO SITUATION AND PLACE. HAD SMALL BROWN BM. PILLS GIVEN CRUSHED IN PUDDING WITHOUT ISSUE. BRUISING NOTED TO HIS R BUTTOCK. IV TO INT.
[2021-06-14 23:59] VITALS: BP 147/72; PULSE 65; TEMP 98.5
[2021-06-15 03:28] VITALS: BP 128/64; PULSE 65; TEMP 97.9
[2021-06-15 07:38] VITALS: BP 141/70; PULSE 71; TEMP 97.5
--- NOTE | 2021-06-15 09:07 | NUR ---
PT RESTING IN BED. BED BATH AND BED CHANGE COMPLETE. AM MEDS GIVEN WITH PUDDING CRUSHED. PT IS DROWSEY BUT AROUSES TO VERBAL. HEEL PROTECTORS INPLACE. COBURN TO DD WITH CLEAR YELLOW URINE IN COLLECTION BAG. INT TO LW.
[2021-06-15 11:08] VITALS: BP 143/63; PULSE 76; TEMP 98
[2021-06-15 16:57] VITALS: BP 147/69; PULSE 77; TEMP 98.7
[2021-06-15 20:14] VITALS: BP 139/71; PULSE 101; TEMP 98.3
--- NOTE | 2021-06-15 21:00 | NUR ---
PT IN BED, LEFT SIDE FLACCID. IS ALERT TO SELF, UNSURE WHY HE IS HERE. HAS SL TO RT AC, OUTDATED AND DC'D. INT TO LEFT AC, FLUSHES WELL. COBURN TO BSD. ASSISTED WITH BEDPAN, HAS MOD SOFT BM. SHERICE CARES GIVEN. TAKES HS MEDS CRUSHED IN PUDDING, SWALLOWS WELL. REPOSITIONED Q2H.
[2021-06-16] VITALS (8 sets, daily range): BP systolic 130–162; BP diastolic 53–78; PULSE 65–90; TEMP 97.2–98.7
--- NOTE | 2021-06-16 04:00 | NUR ---
REPOSITIONED Q2HRS. TALKATIVE WITH STAFF. NO FURTHER BM'S THIS SHIFT. COBURN WITH GOOD URINE OUTPUT. INT LAC FLUSHES WELL.
--- NOTE | 2021-06-16 06:38 | NUR ---
Bedside shift report complete w/ Linda, RN. Pt. resting in bed w/ eyes closed. This RN introduced self to patient. Needs addressed, call light and belongings in reach.
[2021-06-16 06:46] LABS: HEMATOCRIT 42.8 % (42.0-52.0); HEMOGLOBIN 14.4 g/dl (13.5-18.0); MEAN CELL VOLUME 91 fl (80.0-100.0); MEAN CORPUSCULAR HEMOGLOBIN 31 pg (27-31); MEAN CORPUSCULAR HGB CONC 34 g/dl (33.0-37.0); MEAN PLATELET VOLUME 11.7 fl (7.4-10.4); PLATELET COUNT 205 K/mm3 (130-400); RED BLOOD COUNT 4.72 M/mm3 (4.20-5.60); REDCELL DISTRIBUTION WIDTH-CV 12.7 % (11.5-14.5)
[2021-06-16 07:06] LABS: CREATININE, serum 0.8 mg/dL (0.72-1.25)
--- NOTE | 2021-06-16 07:56 | NUR ---
Pt. progressing w/ plan of care. AM assessment and medications given. BP noted to be elevated, will recheck.
--- NOTE | 2021-06-16 09:21 | NUR ---
Follow-up visit; Patient's thanked Hairmasters Manager for checking in on her and herself and recalls Hairmasters Manager from previous visits, one of which Hairmasters Manager brought their Ground Support Equipment Mechanic to the hospital for Omar. left her card with family.
--- NOTE | 2021-06-16 12:35 | NUR ---
Dr. Valentine in to round. Pt. has not eaten well this AM, Dr. Valentine made aware. After Dr. Valentine left pt. was able to eat a pudding. Needs addressed. Bed alarm on, call light in reach. Cath care complete.
--- NOTE | 2021-06-16 14:57 | NUR ---
Manager Forensic collaborated with Jazzy at [facility] who advised they can accept patient skilled as early as tomorrow. Both [facility] and [facility] have declined. SW contacted patient's son, David and provided update. David is in agreement with discharge plan.
--- NOTE | 2021-06-16 22:58 | NUR ---
PATIENT DOING WELL TONIGHT. COBURN TO DD WITH CLEAR YELLOW URINE OUTPUT. COBURN CARE PROVIDED. L SIDE FLACCID. PURPLE BRUISE TO R BUTTOCK. TOOK PILLS CRUSHED IN APPLESAUCE. BLOOD SUGAR WAS 211, TREATED WITH 6 UNITS NOVOLOG. SBP WAS 150, NOT TREATED WITH HYDRALAZINE. DENIES PAIN, NO S/S OF DISTRESS NOTED.
[2021-06-17 03:59] VITALS: BP 138/69; PULSE 65
[2021-06-17 06:45] LABS: CALCIUM 8.1 mg/dL (8.4-10.2); CREATININE, serum 0.82 mg/dL (0.72-1.25); POTASSIUM 4.1 mmol/L (3.5-4.5)
[2021-06-17 06:46] LABS: BASO % 0.1 % (0.0-2.0); GRAN # 13.6 K/mm3 (1.4-6.5); GRAN % 87.8 % (42.2-75.2); HEMATOCRIT 45.5 % (42.0-52.0); HEMOGLOBIN 14.9 g/dl (13.5-18.0); LYMPH # 0.9 K/mm3 (1.2-3.4); LYMPH % 5.5 % (20.0-51.0); MEAN CELL VOLUME 94 fl (80.0-100.0); MEAN CORPUSCULAR HEMOGLOBIN 31 pg (27-31); MEAN CORPUSCULAR HGB CONC 33 g/dl (33.0-37.0); MEAN PLATELET VOLUME 11.7 fl (7.4-10.4); MONO # 0.9 K/mm3 (0.1-0.6); PLATELET COUNT 198 K/mm3 (130-400); RED BLOOD COUNT 4.85 M/mm3 (4.20-5.60)
--- NOTE | 2021-06-17 07:01 | NUR ---
Bedside shift change complete with CEE Moreno. Pt. resting in bed w/ eyes closed. Bed alarm on, call light and belongings in reach.
[2021-06-17 07:25] VITALS: BP 148/73; PULSE 61; TEMP 97.3
--- NOTE | 2021-06-17 11:58 | NUR ---
Pt.'s blood sugar is 433, TAB Negron notified. TAB Negron requesting to give pt. the scheduled 14 units per sliding scale.
[2021-06-17 12:00] VITALS: BP 124/59; PULSE 92; TEMP 97.8
--- NOTE | 2021-06-17 13:00 | NUR ---
This RN inquired w/ TAB Negron pt. has toribio cath. This RN asked TAB Negron if toribio cath should be removed today. TAB Negron reports pt. should keep the toribio today and possible removal tomorrow.
--- NOTE | 2021-06-17 14:17 | NUR ---
Boring Machine Feeder spoke with Jazzy at [facility] who advised they have staff who are covid positive today so they cannot take any new admissions. OMERO contacted Amrit at [facility] and faxed clinical updates. Amrit will have his team re-review. Previously they had declined for skilled. OMERO faxed additional referrals to [facility], [facility], and [facility]. OMERO updated patient's son, David.
[2021-06-17 16:00] VITALS: BP 121/59; PULSE 85; TEMP 98
[2021-06-17 19:25] VITALS: BP 146/64; PULSE 77; TEMP 98.6
--- NOTE | 2021-06-17 22:00 | NUR ---
PT IN BED, HAS LARGE BM EARLIER. HAS SL TO LEFT AC, FLUSHES WELL. HAS EDEMA TO LEFT ARM, ELEVATED ON PILLOW, SKIN FLAKY AND DRY. FLACCID LEFT SIDE. COBURN TO BSD WITH YELLOW URINE, COBURN CARES GIVEN. IS ALERT, KNOWS BIRTHDAY AND WHERE HE IS, UNSURE OF TIME OF DAY. DID NOT KNOW THE YEAR OR MONTH. TAKES HS MEDS CRUSHED IN APPLESAUCE. OXYGEN AT 2L/NC. REPOSITIONED BY STAFF Q2.
[2021-06-18] VITALS (7 sets, daily range): BP systolic 121–141; BP diastolic 59–68; PULSE 61–73; TEMP 97.4–98.2
--- NOTE | 2021-06-18 06:00 | NUR ---
PT RESTING WELL. COBURN REMAINS PATENT. LEFT ARM ELEVATED ON PILLOW.
--- NOTE | 2021-06-18 16:34 | NUR ---
Assembler Metal Building spoke with Patricia at [facility] in [place] who advised they can accept, however cannot take until Wednesday.
[2021-06-19 04:29] VITALS: BP 149/68; PULSE 53; TEMP 98
--- NOTE | 2021-06-19 05:21 | NUR ---
ASSESSMENT COMPLETE FOR THIS SHIFT. PT RESTING IN BED WITH HIS NC TUBING IN HIS MOUTH. NC TUBING REPROSITIONED TO NOSE. O2 SATS CHECKED. O2 AT 96%. PT DENIES PAIN, PALPITATIONS, SOB OR DIZZINESS. PT A&O X 3. PT UNABLE TO TELL ME THE CORRECT DATE, MONTH OR YEAR. PT'S EVENING MEDS CRUSHED AND GIVEN IN APPLE SAUCE. AROUND 0300HRS RT WALKED IN AND PT'S NC WAS IN HIS EYE. PT'S O2 SATS AT 95% AT THAT TIME. DECISION MADE TO JUST REMOVE PT'S NC. PT REMAINS ABOVE 92% ON RA AT THIS POINT. WILL CONTINUE TO MONITOR. PT STATES HE HAS NO OTHER NEEDS AT THIS TIME. CALL LIGHT WITHIN REACH.
[2021-06-19 06:56] LABS: BASO % 0.1 % (0.0-2.0); GRAN # 14.9 K/mm3 (1.4-6.5); GRAN % 84.7 % (42.2-75.2); HEMATOCRIT 46.3 % (42.0-52.0); LYMPH # 1.2 K/mm3 (1.2-3.4); MEAN CELL VOLUME 95 fl (80.0-100.0); MEAN CORPUSCULAR HEMOGLOBIN 31 pg (27-31); MEAN CORPUSCULAR HGB CONC 32 g/dl (33.0-37.0); MEAN PLATELET VOLUME 11.6 fl (7.4-10.4); MONO # 1.3 K/mm3 (0.1-0.6); MONO % 7.2 % (1.7-9.3); PLATELET COUNT 158 K/mm3 (130-400); RED BLOOD COUNT 4.89 M/mm3 (4.20-5.60); REDCELL DISTRIBUTION WIDTH-CV 12.8 % (11.5-14.5)
[2021-06-19 07:23] LABS: CREATININE, serum 0.73 mg/dL (0.72-1.25); POTASSIUM 4.3 mmol/L (3.5-4.5)
[2021-06-19 07:46] VITALS: BP 157/85; PULSE 70; TEMP 97.2
--- NOTE | 2021-06-19 08:00 | NUR ---
PATIENT IS ORIENTED X2 WITH A HX OF DEMENTIA. PATIENT KNOWS WHO HE IS AND HIS BASIC SITUATION. PATIENT IS CONFUSED ON DAY/TIME/PLACE. VSS. NOTED LEFT SIDED WEAKNESS POST HEMORRHAGIC BLEED. BUE +2 EDEMA, BLE +1 EDEMA. COBURN TO DD WITH MOD AMOUNTS OF CLEAR SABRINA URINE NOTED. LEFT AC IV TO INT. PUREE DIET WITH NECTAR THICK LIQUIDS. CRUSHED MED AND GAVE WITH APPLESAUCE, PATIENT TOLERATED WELL. AM BS WAS 144, NO SSI REQUIRED. PT/OT/ST CONSULTED. DNR STATUS. HEAD TO TOE ASSESSMENT COMPLETE. PATIENT REPOSITIONED WITH 2 MAX ASSIST. NO OTHER NEEDS AT THIS TIME. CALL LIGHT IN REACH.
[2021-06-19 11:47] VITALS: BP 141/62; PULSE 81; TEMP 98.1
--- NOTE | 2021-06-19 14:51 | NUR ---
Bean Roaster spoke with patient's son, David who is agreeable with discharge to [facility] in [place] tomorrow. SW contacted Patricia at [facility] and confirmed they can accept tomorrow.
[2021-06-19 15:33] VITALS: BP 144/61; PULSE 85; TEMP 98.7
[2021-06-19 19:52] VITALS: BP 126/55; PULSE 91; TEMP 98
--- NOTE | 2021-06-19 20:00 | NUR ---
Bedside shift report received, assumed care for shift foreman. Assessment complete. Alert but not oriented. Denies pain/nausea/shortness of breath. VS stable. Left upper extremity edematous as well as left lower ext. INT to left AC flushes without difficulty. HS meds crushed and given in apple sauce. Tolerated well. Green cath with clear yellow urine. Denies current questions/concerns. Call light in reach. Will monitor.
[2021-06-20 00:13] VITALS: BP 150/68; PULSE 88; TEMP 97.8
--- NOTE | 2021-06-20 00:30 | NUR ---
Resting eyes closed. no s/s of pain noted.
[2021-06-20 04:15] VITALS: BP 131/60; PULSE 67; TEMP 97
--- NOTE | 2021-06-20 05:37 | NUR ---
Rested well this shift. Denied pain/nausea/shortness of breath. ON room air. Green cath with clear yellow urine. INT to left AC flushes without difficulty. Denies current needs. Call light in reach. Will monitor.
[2021-06-20 06:13] LABS: BASO % 0.1 % (0.0-2.0); GRAN # 13.1 K/mm3 (1.4-6.5); GRAN % 84.4 % (42.2-75.2); LYMPH # 1.2 K/mm3 (1.2-3.4); LYMPH % 7.5 % (20.0-51.0); MEAN CELL VOLUME 94 fl (80.0-100.0); MEAN CORPUSCULAR HEMOGLOBIN 31 pg (27-31); MEAN CORPUSCULAR HGB CONC 33 g/dl (33.0-37.0); MEAN PLATELET VOLUME 12.1 fl (7.4-10.4); MONO % 6.6 % (1.7-9.3); PLATELET COUNT 167 K/mm3 (130-400); RED BLOOD COUNT 4.92 M/mm3 (4.20-5.60); REDCELL DISTRIBUTION WIDTH-CV 12.8 % (11.5-14.5)
[2021-06-20 06:45] LABS: CREATININE, serum 0.74 mg/dL (0.72-1.25); POTASSIUM 4.3 mmol/L (3.5-4.5)
[2021-06-20 07:47] VITALS: BP 158/75; PULSE 59; TEMP 97.6
--- NOTE | 2021-06-20 08:00 | NUR ---
PATIENT IS ORIENTED X2 WITH A HX OF DEMENTIA. VSS. NOTED LEFT SIDED WEAKNESS POST HEMORRHAGIC BLEED. BUE +2 EDEMA, BLE +1 EDEMA. COBURN TO DD WITH MOD AMOUNTS OF CLEAR SABRINA URINE NOTED. LEFT AC IV TO INT. PUREE DIET WITH NECTAR THICK LIQUIDS. CRUSHED MED AND GAVE WITH APPLESAUCE, PATIENT TOLERATED WELL. AM BS WAS 145, NO SSI REQUIRED. PT/OT/ST CONSULTED. DNR STATUS. HEAD TO TOE ASSESSMENT COMPLETE. 2 MAX ASSIST WITH ACTIVITY/TRANSFERS. PLAN IS FOR PATIENT TO DISCHARGE TO [place] TODAY. NO OTHER NEEDS AT THIS TIME. CALL LIGHT IN REACH.
[2021-06-20] MEDS ORDERED: ARICEPT 5MG PO (09:21)
[2021-06-20] MEDS ORDERED: APRESOLINE 25MG25 MG PO ×2 (09:22→09:23)
[2021-06-20] MEDS ORDERED: ONE-A-DAY ESSE1 EACH PO (09:23)
[2021-06-20] MEDS ORDERED: GLUCOPHAGE XR500 M1 PO (09:24)
[2021-06-20] MEDS ORDERED: MYCELEX10 MG/TAB MM (09:24)
[2021-06-20] MEDS ORDERED: LEVEMIR100 U/ML SQ (09:25)
[2021-06-20] MEDS ORDERED: NOVOLOG 100U100 U/M1 SQ (09:26)
[2021-06-20] MEDS ORDERED: PEPCID 20MG TAB20 MG PO (09:28)
[2021-06-20] MEDS ORDERED: DECADRON 1MG TAB1 MG PO (09:28)
[2021-06-20] MEDS ORDERED: KEPPRA1000 MG PO (09:29)
[2021-06-20] MEDS ORDERED: SEROQUEL 2525 MG/TAB PO (09:29)
[2021-06-20] MEDS ORDERED: DULCOLAX S10 MG/SUPP RC (09:29)
[2021-06-20] MEDS ORDERED: NAMENDA 10MG TA10 MG PO (09:29)
[2021-06-20] MEDS ORDERED: CELEXA 20MG20 MG/TAB PO (09:29)
[2021-06-20] MEDS ORDERED: NORVASC 10MG10 MG PO (09:30)
[2021-06-20] MEDS ORDERED: TYLENOL SU650 MG/SUP RC (09:30)
[2021-06-20] MEDS ORDERED: ZESTRIL40 MG PO (09:30)
--- NOTE | 2021-06-20 11:19 | NUR ---
Patient is ready for discharge to [facility] in [place] today. OMERO collaborated with RN and PT, both agree that patient is not safe for wheelchair transport and will require EMS transport. OMERO collaborated with [facility] and Patricia from [facility] to set picker time for 1200. OMERO contacted patient's son, David to provide update. David is with patient's , Kristina and they are both in agreement with discharge plan. David and Kristina are going to [facility] around 1230 to complete admissions paperwork. OMERO reviewed IM form with David who verbalized understanding and provided verbal consent for OMERO to sign on his behalf. OMERO placed IM form in chart. OMERO faxed negative covid results and discharge orders to Patricia at [facility]. Discharge Plan: [facility]
[2021-06-20 11:56] VITALS: BP 133/62; PULSE 65; TEMP 97.4
[2021-06-20 12:02] VITALS: BP 133/62; PULSE 65; TEMP 97.4
--- NOTE | 2021-06-20 12:48 | NUR ---
PATIENT DISCHARGING TO [facility] VIA EMS. INFO PACKET GIVEN TO EMS. CALLED NURSE TO NURSE REPORT. TOOK PERSONAL BELONGINGS. IV DC'D AND COVERED WITH COBAN. PATIENT DISCHARGED.
== END 2021-06-20 12:48 | DRG 64 ==
LOC: COL.ER 08:40 → SURG 14:12
PROVIDERS: Family Medicine; Internal Medicine; Physician Assistant; ADMIT Internal Medicine
PROC: F00 Physical Rehabilitation and Diagnostic Audiology, Rehabilitation, Speech Assessment (ICD-10-PCS; principal; 2021-06-12)
DX: I63.9 Cerebral infarction, unspecified (principal); J96.01 Acute respiratory failure with hypoxia; G93.6 Cerebral edema; G81.94 Hemiplegia, unspecified affecting left nondominant side; I62.9 Nontraumatic intracranial hemorrhage, unspecified; R41.4 Neurologic neglect syndrome; Z68.41 Body mass index [BMI] 40.0-44.9, adult; Z66 Do not resuscitate; E11.9 Type 2 diabetes mellitus without complications; F03.90 Unspecified dementia, unspecified severity, without behavioral disturbance, psychotic disturbance, mood disturbance, and anxiety; F32.A Depression, unspecified; F41.9 Anxiety disorder, unspecified; E66.9 Obesity, unspecified; D72.829 Elevated white blood cell count, unspecified; E11.65 Type 2 diabetes mellitus with hyperglycemia; T38.0X5A Adverse effect of glucocorticoids and synthetic analogues, initial encounter; I10 Essential (primary) hypertension; B37.9 Candidiasis, unspecified; Z20.822 Contact with and (suspected) exposure to COVID-19; Z79.84 Long term (current) use of oral hypoglycemic drugs; Z85.46 Personal history of malignant neoplasm of prostate; Z90.49 Acquired absence of other specified parts of digestive tract
CPT/HCPCS: 99223-AI; 99232-AI; 99233-AI; 99239; A4314; J0360; J1100; J1815; J1953; J7030; J7050